=== PATIENT | male | born 1965 | race African-American/Black ===

== ENCOUNTER 2017-05-03 15:07 | Emergency (ER) | payer SELFPAY ==
[~2017-05-03] VITALS: Ht 170.2 cm; Wt 65.0 kg
[~2017-05-03 15:07] MED LIST: Z.0.NO CURRENT MEDS
[2017-05-03 15:09] VITALS: BP 112/57; PULSE 89; RESP 17; TEMP 98.7; O2SAT 99
--- NOTE | 2017-05-03 15:31 | PD ---
Physical Exam Time Seen by Provider: 15:30 Narrative 52 y/o male presents with Lower abdominal/groin pain for one week, worse with palpation/lifting. He says there is a "knot" in the groin. Vital signs reviewed. Seen at triage desk. Awaiting bed placement. (Mario Cartwright) Data Data Last Documented VS Vital Signs Date Time Temp Pulse Resp B/P Pulse Ox O2 Delivery O2 Flow Rate FiO2 05/03/17 15:09 98.7 89 17 112/57 99 (Larry Espinoza MD) [facility] Medical Record Reviewed: Yes Supervised Visit with GRANT: No (Mario Cartwright) Supervised Visit with GRANT: Yes (Larry Espinoza MD) Diagnosis Primary Impression: Inguinal hernia of right side without obstruction or gangrene Referrals: Darwin Peters MD Disposition: 01 DISCHARGE HOME Condition: Stable Mario Cartwright May 03, 2017 15:31 Larry Espinoza MD May 03, 2017 15:48
--- NOTE | 2017-05-03 16:35 | PD ---
HPI Chief Complaint: GI Complaint Time Seen by Provider: 15:35 Travel History International Travel<30 days: No Contact w/Intl Traveler<30days: No Traveled to known affect area: No History of Present Illness HPI Patient is a 52-year-old male presents emergency Department with right inguinal swelling. Patient states that he has noticed that over the past week but typically worse when he does heavy lifting. He states when he lies down flat it goes back up inside of him. He states his had some mild pain in his right leg as well. Mild nausea without vomiting was endorsed earlier in this week now resolved. Denies any fever denies any blood in the stool denies any emesis. States she's never had this type of thing happen to him before. PFSH Past Medical History Immunizations Current: Yes (TETNUS WITHIN 5 YEARS ) Pancreatitis: Yes Past Surgical History Pacemaker: No Social History Alcohol Use: No Tobacco Use: Yes (12/03 ppd) Substance Use: Yes (cocaine and marijuana occ) Allergies-Medications (Allergen,Severity, Reaction): Coded Allergies: No Known Allergies (Unverified , 05/03/17) Reported Meds & Prescriptions Reported Meds & Active Scripts Active No Active Prescriptions or Reported Medications Review of Systems Except as stated in HPI: all other systems reviewed are Neg Physical Exam Narrative GENERAL: Well-nourished, well-developed patient. SKIN: Focused skin assessment warm/dry. HEAD: Normocephalic. EYES: No scleral icterus. No injection or drainage. NECK: Supple, trachea midline. No JVD or lymphadenopathy. CARDIOVASCULAR: Regular rate and rhythm without murmurs, gallops, or rubs. RESPIRATORY: Breath sounds equal bilaterally. No accessory muscle use. GASTROINTESTINAL: Abdomen soft, non-tender, nondistended. No rebound no percussive tenderness. GENITOURINARY: Grossly normal penis and testes, patient has a inguinal hernia on the right side appears to be indirect only present when he coughs or bears down. No other abnormality. MUSCULOSKELETAL: No cyanosis, or edema. BACK: Nontender without obvious deformity. No CVA tenderness. Data Data Last Documented VS Vital Signs Date Time Temp Pulse Resp B/P Pulse Ox O2 Delivery O2 Flow Rate FiO2 05/03/17 15:09 98.7 89 17 112/57 99 MDM Medical Decision Making Medical Screen Exam Complete: Yes Emergency Medical Condition: Yes Differential Diagnosis Inguinal hernia, entrapped hernia is excluded clinically, strain related hernias excluded clinically, acute abdomen is excluded clinically. Narrative Course 52-year-old male presents with uncomplicated right inguinal hernia. No indication for further intervention at this time. He was offered pain medicine declined stating he's been taking Tylenol ibuprofen at home as needed. Discussed dosing regimen of Tylenol ibuprofen and need follow-up with a surgeon. He was urged to follow-up the patient assistance program as well. He states is in process of getting insurance and should have it shortly. Discussed return to ED criteria. Diagnosis Primary Impression: Inguinal hernia of right side without obstruction or gangrene Referrals: Darwin Peters MD Patient Instructions: General Instructions Departure Forms: Tests/Procedures Scripts No Active Prescriptions or Reported Meds Disposition: 01 DISCHARGE HOME Condition: Stable Larry Espinoza MD May 03, 2017 16:35
== END 2017-05-03 16:13 | disposition home or self-care (01) ==
LOC: NEPD 15:07
DX: K40.90 Unilateral inguinal hernia, without obstruction or gangrene, not specified as recurrent (principal); Z72.0 Tobacco use
CPT/HCPCS: 99282